=== PATIENT | female | born 1960 | race African-American/Black ===

== ENCOUNTER 2021-03-05 13:54 | Inpatient (IN) | payer BC ==
[~2021-03-05] VITALS: Ht 162.6 cm; Wt 107.4 kg
[~2021-03-05 13:54] MED LIST: AMBIEN CR 12.12.5 MG PO; ASPIRIN E.C. 8181 MG PO; LASIX 40MG TABL40 MG PO; MINOCIN 50M50 MG/CAP PO; NEXIUM 40MG40 MG PO; NORCO 325 MG-7.1 TAB PO; PROVIGIL200 MG PO; SYNTHROID0.1 MG/TAB PO
[2021-04-29] VITALS (11 sets, daily range): BP systolic 123–147; BP diastolic 62–85; PULSE 85–114; TEMP 98.6–99.7
[2021-04-29] MEDS ORDERED: CYMBALTA 60MG60 MG PO (06:39)
[2021-04-29] MEDS ORDERED: FOLIC ACID 11 MG/TA1 PO (06:41)
[2021-04-29] MEDS ORDERED: ONE-A-DAY ESSE1 EACH PO (06:41)
[2021-04-29] MEDS ORDERED: VITAMIN C500 MG PO (06:41)
[2021-04-29] MEDS ORDERED: SLOW FE142 MG PO (06:43)
[2021-04-29] MEDS ORDERED: VITAMIN B11000 MCG/M IM (06:44)
[2021-04-29] MEDS ORDERED: BENADRYL25 M2 PO (06:44)
--- NOTE | 2021-04-29 07:46 | NUR ---
UNABLE TO APPLY RAVI HOSE DUE TO PATIENTS SIZE. DID NOT HAVE THE RAVI HOSE SIZE TO ACCOMADATE PATIENT
--- NOTE | 2021-04-29 11:20 | NUR ---
Pt arrived to floor at this time via bed with PACU staff. Pt resting in bed, sleepy but arouses easily, family at bedside. Pt denies pian at this time, VSS. R knee is dressed with bulky dressing, CMS intact. Call light in reach, will conitnue to monitor.
[2021-04-29] MEDS ORDERED: PROAIR HFA0.09 MG/AC IH (12:28)
[2021-04-29] MEDS ORDERED: 00186-0372-20 IH (12:29)
--- NOTE | 2021-04-29 17:05 | NUR ---
Pt has done well over afternoon, able to verbalize needs well and PRN pain meds given per request. PT resting in bed, able to get up with wheeled walker to bathroom, gait steady, ice applied to knee. Called Dileep for orders on breathing treatments and called RT regarding pt request for breathing treatment and IS teaching. Resting in bed, ordering supper, will continue to monitor and [facility] will resume care.
--- NOTE | 2021-04-29 17:17 | NUR ---
Nurse walking by room found pt up ad lazara in room. Pt re-educated on need to get up with assistance, pt is alert and oriented and a nurse herself, aware of safety precautions. Will continue to monitor.
--- NOTE | 2021-04-29 22:56 | NUR ---
Patient assessed around 1949. Alert and oriented x 4, and able to make needs known. Patient having lots of pain tonight. Rated pain at a 7, and was given PRN [place] around 1949. Rated as a 7 again, and given PRN Roxicodone around 2214. Rated pain as an 8 at 2299, and given PRN Morphine per orders at that time. Also given PRN Ambien as requested around 2099, and PRN Benadryl around 2214 for itching. Peripheral INT to right hand. Denies SOB and dyspnea. LS CTA. Respirations even and unlabored. HRR. Capillary refill less than 3 seconds. Non-tenting skin turgor. BSAx4. Abdomen soft and non-tender. Declined senokot tonight. No edema. SCDs on. Dressing/GUILLERMINA wrap to right knee CDI. Patient voices no questions, needs, or concerns at this time. Resting in bed with call light within reach.
--- NOTE | 2021-04-29 23:49 | NUR ---
Patient continues to complain of level 8 pain to right knee. Given PRN [place] as requested for pain at this time.
[2021-04-30] VITALS (7 sets, daily range): BP systolic 128–194; BP diastolic 69–94; PULSE 89–109; TEMP 98.6–100
--- NOTE | 2021-04-30 02:05 | NUR ---
Patient given PRN Benadryl for itching and PRN Roxicodone for pain as requested.
--- NOTE | 2021-04-30 04:12 | NUR ---
Patient given PRN [place] for pain as requested.
--- NOTE | 2021-04-30 06:12 | NUR ---
Patient given PRN Roxicodone around 0545. Pain does not seem to be well controlled throughout the night, and patient was not able to get much rest during the night. Encouraged to continue to call for assistance when needed. Ice continues to knee.
[2021-04-30 06:41] LABS: HEMATOCRIT 26.1 % (37.0-47.0); HEMOGLOBIN 7.7 g/dl (12.5-16.0)
--- NOTE | 2021-04-30 09:29 | NUR ---
PT UP TO RECLINER FOR BREAKFAST. PT CONTINUES TO WANT PAIN MEDICATION Q 2 HRS. PAIN WELL CONTROLLED AT THIS TIME. DRESSING CHANGE COMPLETE AQUACEL PLACED OVER INCISION. PT TOLERATED ALL PROCEEDURES WELL.
--- NOTE | 2021-04-30 10:40 | NUR ---
First visit from the spa manager/esthetician. No needs right now.
--- NOTE | 2021-04-30 21:39 | NUR ---
Patient assessed around 1934. Alert and oriented x 4, and able to make needs known. Reported level 8 pain to right knee. Given PRN Roxicodone as requested for pain at that time. Patient again complained of level 8 pain around 2119, and was given PRN [place] as requested. peripheral INT to right hand. Denies SOB and dyspnea. LS CTA. Respirations even and unlabored. HRR. Capillary refill less than 3 seconds. Non-tenting skin turgor. BSAx4. Abdomen soft and non-tender. Edema to right leg. Aquacell to right knee CDI. Voices no questions, needs, or concerns at this time. Resting in bed with call light within reach.
[2021-05-01] VITALS (7 sets, daily range): BP systolic 118–175; BP diastolic 59–82; PULSE 93–111; TEMP 97.9–100.9
--- NOTE | 2021-05-01 00:02 | NUR ---
Patient given PRN Roxicodone for pain as requested at this time.
--- NOTE | 2021-05-01 01:42 | NUR ---
Patient complaining of level 7 pain to right knee. Given PRN [place] as requested for pain at this time.
--- NOTE | 2021-05-01 04:25 | NUR ---
Patient complaining of pain to right knee. Given PRN Roxicodone as requested for pain.
--- NOTE | 2021-05-01 05:38 | NUR ---
Patient has been receiving PRN pain medications about every 3 hours throughout the night, alternating PRN Roxicodone with PRN [place]. See MAR for details. Patient does state that she feels her pain is better controlled this morning, and that she is feeling well. Voices no questions, needs, or concerns at this time. Resting in bed with call light within reach. Did state that she feels like she was able to get more sleep tonight as well.
[2021-05-01 06:03] LABS: HEMATOCRIT 23.6 % (37.0-47.0); HEMOGLOBIN 7.1 g/dl (12.5-16.0)
--- NOTE | 2021-05-01 08:15 | NUR ---
Pt rang call light asking for more pain medication. Pt just recently has had some pain medication. Pt is drowsy upon entering the room. She has been taking as much pain medication as is prescribed through the night. She states that she is used to taking that much as I discussed it might be the cause of her drowsiness and dizziness. Pt reports that her pain is 4/10 right now and that it is tolerable for her to still be able to get up and move around. She stated that she knows she can't tolerated pain very well. She has had breakfast, reports getting enough to eat. No other needs, PT going in to work with pt.
--- NOTE | 2021-05-01 08:21 | NUR ---
(late entry 04/30) Radiation Protection Specialist met with the patient to complete intake. The patient alone in [place]. The patient has a walker and is independent with ADLs. The patient's PCP is Francis Alfonso PA-C and patient receives medications from [facility] in . The patient does not have advanced directives. The patient has an adult daughter, Onesimo Renae. The patient is currently set to begin OP PT at [place] and plan is to go home. However, the patient inquired about post acute rehab. After discussing options, the patient was agreeable to sending a referral to [facility] IPR. Referral sent. *Discharge disposition: Home with OP PT or IPR*
--- NOTE | 2021-05-01 10:00 | NUR ---
Returned to give patient pain medicaiton. Pt was in her room sitting sideways on her bed crying in pain. Offered to assist pt it sitting more straight or to get in the the chair. Pt refused stated that she was in too much pain to even move. Pain medication given. Pt reported that she needs to be taking something more often. Informed her that she had something around 0630 and that it had just been 3 hours since getting pain medication. I did call ERICK Benavides to ask about giving something IV. Kennedy reported that he did not want her having anything IV at this time. Will continue to monitor
--- NOTE | 2021-05-01 10:15 | NUR ---
Returned to tell pt that I would not be able to get her anything IV. Pt was sitting more upright on her bed talking cheerfully on the phone. Pt did get off the phone when I entered. I informed her that I would not be able to get her anything IV, but that if her pain does not become tolerable soon, there was another option for oral pain medication. Pt stated that does not need anything additional that she feels fine. Pt reported that she is going go start getting dressed.
--- NOTE | 2021-05-01 11:52 | NUR ---
Pt swaying back and forth in bed, moaning and rubbing her knee. Reports pain is burning and starting to get really bad. Pain medication given
--- NOTE | 2021-05-01 12:25 | NUR ---
Pt sitting up on the side of the bed. She does appear sleepy, eyes partially open. She did state that her pain is better, rating it at a 2 at this time.
--- NOTE | 2021-05-01 14:45 | NUR ---
Pt asking for more pain medication. She was laying sideways again in bed with head resting on the side rail. Asked about helping her get repositioned and she reported that that is what is comfortable for her. I did have to wake her upon entering room. Once discussing pain, she started moaning. Informed her that laying on her right side and applying the extra pressure to her knee is probably not helping the pain. Encouraged her to lay on her back and keep her knee straight which she did at this time. She does have an ice pack to her right knee. She then stated that she is itching and wants benadryl.
--- NOTE | 2021-05-01 15:44 | NUR ---
Pt up walking in the [place]. Appears to be doing well although she is moving slowly. She does not have her walker with her. Informed her she should be using it when she is up ambulating. She walked to the Joint desk and back to her room. Denies any other needs.
--- NOTE | 2021-05-01 16:45 | NUR ---
Pt does have a visitor in the room with her at this time. She is also asking about getting more pain medication. She asked when she can have it again. I asked how she would rate her pain and she stated that it wasn't too bad. I encouraged her to try and wait 3 hours between getting pain medication if she could. She stated that would not be a problem, informed her it would be about 6pm. Thigh high julio huggins applied. No other needs, pt continues to be up in her room independently.
--- NOTE | 2021-05-01 21:08 | NUR ---
PT RESTING IN BED. C/O RT KNEE PAIN. LEVEL 7/10. SEE MAR FOR PAIN MED GIVEN. REMINDED PT NEED FOR GOOD ALLIGNMENT WHEN RESTING IN BED. ENC I.S FREQUENTLY.
--- NOTE | 2021-05-01 22:45 | NUR ---
PT ASKING FOR PAIN MEDICATION AGIAN. LAST DOSE ROXICODONE AT 2107. TOO SOON.
[2021-05-02] VITALS (12 sets, daily range): BP systolic 111–157; BP diastolic 54–79; PULSE 90–101; TEMP 97.5–99.6
[2021-05-02 06:49] LABS: HEMATOCRIT 22.7 % (37.0-47.0); HEMOGLOBIN 6.9 g/dl (12.5-16.0)
--- NOTE | 2021-05-02 08:12 | NUR ---
Pt doing well this morning. She has had no extreme complaints of pain. Dr Falk has been in to see patient. No new orders, but pt planning on going home after morning therapy
--- NOTE | 2021-05-02 10:19 | NUR ---
Fresh Foods Technician met with the patient to revisit the discharge plan. The patient plans to do OP PT at [facility] and her appointment is set for next Thursday, 05/08 at 1300. She is feeling better and does not qualify for IPR. *Discharge disposition: Home with OP PT*
--- NOTE | 2021-05-02 11:00 | NUR ---
Pt continues to do well and plans to go home today. She has had no increasing complaints of pain and no other complaints at this time. Informed her that I was waiting on the order from the physician before I could start on paperwork. Pt stated that she understood
--- NOTE | 2021-05-02 11:45 | NUR ---
Pt laying sideways in bed at this time. She stated that she trying to get in bed a different way and it didn't work. Instructed pt to sit up and instructed her on what to do to lay straight. Pt is consistently laying crooked/sideways in bed. Educated again that she needs to be cautious doing this as it is forcing her knee to be strained. Asked WORKERS' COMPENSATION MAGISTRATE to get ice pack for her right knee. Pt has ordered lunch and pain medication given
[2021-05-02] MEDS ORDERED: NORCO 325 MG-7.1 TAB PO (12:20)
[2021-05-02] MEDS ORDERED: ASPI325T6 PO (12:20)
[2021-05-02] MEDS ORDERED: ROXICODONE 55 MG/TAB PO (12:22)
[2021-05-02] MEDS ORDERED: SENOKOT S 50 MG1 TAB PO (12:22)
--- NOTE | 2021-05-02 14:00 | NUR ---
Informed pt that I had received orders for her to go home and that we were just plugging in her appointment. She stated no problem and that she was not in any hurry. She stated she would call her ride which was coming from [place]. Pt then asked what her hemoglobin was. Told her the results. Shortly after, pt rang call light. She was initially asking to speak to the credit and loan collections supervisor. I asked her if there was something I could do. Pt then started almost crying stating that she was concerned going home with her hemoglobin below 7. She stated that she was having heart palpitations and she feels like her heart is racing. Pulse rate is consistent from when she was admitted. Informed her that there haven't been drastic vital sign changes and she stated that she knew that because "this is how I always am." Informed her I would call ortho and let them know her concerns.
--- NOTE | 2021-05-02 15:28 | NUR ---
Have received new orders for pt to get some blood. Pt was initally upset that it is just now being ordered. I informed her that we just became aware of the "symptoms" that she was having. She then stated she understood. She should have something sooner. Pt again laying sideways in the bed and on the right side. Again educated her that this is not good for her knee pain. Ice pack on the right knee. Informed her I would be in with the blood once it is ready
--- NOTE | 2021-05-02 20:00 | NUR ---
PT UP ABOUT ROOM. INCONT EPISDOES- PROVIDED BRIEFS. PAIN CONTROLLED AT THIS TIME. WAITING FOR BLOOD FOR TRANSFUSION. PT HAS SEDATED AFFECT. ENC SAFETY ABOUT ROOM.
--- NOTE | 2021-05-02 22:30 | NUR ---
#1 UNIT LPRBC'S STARTED. PT VERBALIZED UNDERSTANDING OF S/S BLOOD REACTION.
--- NOTE | 2021-05-02 22:59 | NUR ---
IV TO RT HAND INFILTRATED. CHARGE NURSE ATTEMPTING TO RESTART ANOTHER IV. GAVE BENADRYL EARLIER PREVENTATIVELY FOR BLOOD TRANSFUSION PER PT REQUEST.
[2021-05-03 00:30] VITALS: BP 128/61; PULSE 103; TEMP 98.8
[2021-05-03 01:30] VITALS: BP 127/64; PULSE 102; TEMP 98.7
[2021-05-03 04:06] VITALS: BP 126/64; PULSE 95; TEMP 98.3
[2021-05-03 06:14] LABS: HEMATOCRIT 26.8 % (37.0-47.0)
[2021-05-03 07:23] VITALS: BP 98/79; PULSE 91; TEMP 98.9
--- NOTE | 2021-05-03 08:00 | NUR ---
Patient resting in bed at this time. Patient requests PRN pain medication for 6/10 pain in her right knee, administered per order. Patient reports that she is tired this morning, but is in good spirits, is looking forward to going home today after PT. Denies further needs, call light within reach.
--- NOTE | 2021-05-03 11:55 | NUR ---
Discharge teaching completed. Discussed follow up appointments, discharge medications, and discharge instuctions. Patient verbalized understanding. IV removed, catheter intact, hemostasis achieved. Patient confirmed all belongings were gathered, patient escorted to ED entrance via wheelchair where she entered a private vehicle.
== END 2021-05-03 11:55 | disposition home or self-care (01) | DRG 470 ==
LOC: INPTSU 04-29 05:17 → SURG 04-29 07:30
PROVIDERS: Physician Assistant; ADMIT Orthopaedic Surgery
PROC: 3E0U3BZ Introduction of Anesthetic Agent into Joints, Percutaneous Approach (ICD-10-PCS; 2021-04-29)
PROC: 0SRC0J9 Replacement of Right Knee Joint with Synthetic Substitute, Cemented, Open Approach (ICD-10-PCS; principal; 2021-04-29 07:30)
PROC: 3E0U33Z Introduction of Anti-inflammatory into Joints, Percutaneous Approach (ICD-10-PCS; 2021-04-29 07:30)
DX: M17.0 Bilateral primary osteoarthritis of knee (principal); D62 Acute posthemorrhagic anemia; I10 Essential (primary) hypertension; K21.9 Gastro-esophageal reflux disease without esophagitis; M79.7 Fibromyalgia; I25.10 Atherosclerotic heart disease of native coronary artery without angina pectoris; E11.42 Type 2 diabetes mellitus with diabetic polyneuropathy; J45.909 Unspecified asthma, uncomplicated; F32.9 Major depressive disorder, single episode, unspecified; F41.9 Anxiety disorder, unspecified; F43.10 Post-traumatic stress disorder, unspecified; G47.00 Insomnia, unspecified; Z88.0 Allergy status to penicillin; Z88.2 Allergy status to sulfonamides
CPT/HCPCS: A9284; C1713; C1776; J0360; J0690; J1040; J2250; J2270; J2704; J7120; P9016

== ENCOUNTER → 2021-05-10 | Outpatient (CLI) | payer BC ==
[~2021-05-10] MED LIST changes: +00186-0372-20 IH; +ASPI325T6 PO; +BENADRYL25 M2 PO; +CYMBALTA 60MG60 MG PO; +FOLIC ACID 11 MG/TA1 PO; +ONE-A-DAY ESSE1 EACH PO; +PROAIR HFA0.09 MG/AC IH; +ROXICODONE 55 MG/TAB PO; +SENOKOT S 50 MG1 TAB PO; +SLOW FE142 MG PO; +VITAMIN B11000 MCG/M IM; +VITAMIN C500 MG PO
== END ==
LOC: COL.VAS 10:45
DX: M79.604 Pain in right leg (principal); M79.89 Other specified soft tissue disorders; Z96.651 Presence of right artificial knee joint

== ENCOUNTER 2021-06-27 13:43 | Inpatient (IN) | payer BC ==
[~2021-06-27] VITALS: Ht 160 cm; Wt 99.5 kg
[2021-11-25] VITALS (8 sets, daily range): BP systolic 109–131; BP diastolic 62–99; PULSE 73–91; TEMP 97.6–99.8
--- NOTE | 2021-11-25 07:35 | NUR ---
61 Year old patient admitted to [facility] bay #7. Patient is alert and oriented X3. Using a mildy unsteady gait and no use of assistive devices. Height and weight obtained. Procedure verified and consent signed. Patient verbalized understanding of procedure. Medications and HX was reviewed. Vitals obtained. Patient changed into a clean gown and has the non-sliop socks on. Warm blankets provided. L knee area scrubbed with chlorhexidine and teds applied to the non-operative side. IV started in R hand on first attempt. It is positional, however infuses without difficulty if you pull back a little on the hub. Anasthesia notified and verbalized understanding. IVF are infusing slowly. No swelling, redness or edema noted. Call almaraz is at bedside. Side rails x2. Father was escorted from the waiting room and is present in the patients private bay. Privacy code was provided, along with inpatient unit number. PO medications administered.
--- NOTE | 2021-11-25 12:45 | NUR ---
PATIENT ADMITED INTO ROOM 332 POST OP LTK. ORIENTED BUT DROWSY. VSS. DENIES PAIN OR NAUSEA. LEFT KNEE DRESSING IS CD&I WITH BULKY ACEWRAP DRESSING AND ICE PACK INPLACE. TEDS TO RLE. SCD'S TO BLE. POSITIVE PEDAL PULSES TO BLE. PATIENT WAS STRAIGHT CATHED IN PACU FOR 550CC, DENIES NEED TO VOID. IV FLUIDS INFUSING INTO RIGHT HAND VIA PUMP. HEAD TO TOE ASSESSMENT COMPLETE. ORIENTED TO ROOM. CALL LIGHT IN REACH. PATIENT'S DAD AT BEDSIDE.
--- NOTE | 2021-11-25 21:16 | NUR ---
Patient assessed around 1944. Alert and oriented x 4, and able to make needs known. Reported level 8 pain to left knee. Given PRN Morphine per orders at that time. Called again around 2044, reporting level 8 pain. Given second dose of Morphine per orders at that time. Dressing to left knee CDI. Ice to area. SCDs on. Denies SOB and dyspnea. LS CTA. HRR. Has been getting up to bedside commode. Voices no further questions, needs, or concerns at this time. In bed with call light within reach.
--- NOTE | 2021-11-25 21:32 | NUR ---
Patient given PRN Roxicodone and Ambien as requested at this time. Pain is currently rated as a 6 to left knee.
--- NOTE | 2021-11-25 23:55 | NUR ---
Patient given PRN [place] around 2315 by charge nurse. This nurse checked on patient around 2340 to follow up. Reported she still had pain to left knee. Offered a half tab of [place] per orders, and agreeable. Given per orders. Explained that PRN Roxicodone would be margie around 0130 along with ABX, but encouraged to call if she was needing PRN Morphine before that, and voiced understanding. Voices no further questions, needs, or concerns at this time. In bed with call light within reach.
[2021-11-26] VITALS (7 sets, daily range): BP systolic 107–149; BP diastolic 48–95; PULSE 93–107; TEMP 97.5–99.7
--- NOTE | 2021-11-26 01:36 | NUR ---
Patient given PRN Ultram at 0050. Not effective. Offered PRN Roxicodone at 0130, but stated she wanting something stronger and faster first. Given PRN Morphine at that time. Updated patient's white board with how often she can have each pain medication and the last time that she had each pain medication.
--- NOTE | 2021-11-26 03:01 | NUR ---
Patient given PRN Roxicodone around 0230. Requested Morphine for pain around 0250 after using commode. Given as requested.
--- NOTE | 2021-11-26 04:43 | NUR ---
Patient given PRN Morphine for pain at this time. Reports pain is doing better, rated at a 6.
--- NOTE | 2021-11-26 06:20 | NUR ---
Patient given PRN [place] around 0535, and Roxicodone around 0615. Ice to left knee. Voices no further questions, needs, or concerns at this time. In bed with call light within reach.
[2021-11-26 07:04] LABS: HEMOGLOBIN 10.8 g/dl (12.5-16.0)
[2021-11-26 07:05] LABS: HEMATOCRIT 33.4 % (37.0-47.0)
--- NOTE | 2021-11-26 07:30 | NUR ---
PATIENT IS ORIENTED X2 BUT SEEMS A LITTLE TURNED AROUND THIS AM. PATIENT REPORTS SHE DIDN'T GET ANY SLEEP LAST NIGHT. PATIENT C/O PAIN IN LLE. PATIENT IS GETTING SEVERAL DIFFERENT PAIN MEDS AND HAS ALREADY RECEIVED MOST OF THEM ORDERED. PATIENT WAS GIVEN PRN ULTRAM, TWO TABS WITH AM MEDS. PAIN MEDS WRITTEN ON WHITE BOARD WITH NEXT AVAILABLE DOSE. NURSING EDUCATED PATIENT ABOUT ICE & ELEVATION, SHE DECLINED. NURSING WAS ABLE TO REMOVE POST OP ACEWRAP DRESSING AND APPLIED AQUACEL. ICE PACK NEXT TO PATIENT, SHE DOESN'T NOT WANT IT RIGHT NOW. TEDS TO RLE. SCD'S CURRENTLY OFF. POSITIVE PEDAL PULSES TO BLE. PATIENT IS EAT/DRINK/VOIDING SUFFICENT AMOUNTS. LAST DOSE OF IV ABX INFUSING. HEAD TO TOE ASSESSMENT COMPLETE. CALL LIGHT IN REACH.
--- NOTE | 2021-11-26 08:53 | NUR ---
PATIENT CALLED OUT MINUTES AFTER NURSING LEFT ROOM ASKING WHEN SHE WILL BE GETTING THE MORPHINE. PATIENT WAS REMINDED NURSING AND 2 PCT'S WERE JUST IN THE ROOM MOMENTS AGO. AFTER TALKING WITH ORTHO REGUARDING NARCOTICS, NURSING EDUCATED PATIENT ABOUT BREAK THROUGH DOSING OF MORPHINE, AND RN SAID "I WILL GIVE YOU YOUR FIRST DOSE NOW". PRN IV MORPHINE 2MG GIVEN, IV LINE FLUSHED, AND PATIENT DISCONNECTED FROM COMPLETED LAST DOSE OF IV ABX. PATIENT SITTING AT BEDSIDE, ROCKING WITH HER EYES CLOSED DURING THIS TIME. NURSING OFFERED TO ICE & ELEVATE KNEE BUT PATIENT REFUSED. ALTHOUGH PATIENT HAS A VERY LOW THRESHOLD FOR PAIN, REPORTED BY HER, NURSING IS CONCERNED SHE DOESN'T HARDLY REMEMEBER ANY OF THAT INTERACTION, ADMINISTRATION OF NARCOTICS, AND SEEMS TO HAVE HAD A LOT OF NARCOTICS ON BOARD. WILL MONITOR
--- NOTE | 2021-11-26 10:27 | NUR ---
shine worker met with patient to discuss discharge plan. Patient's lila Catalan ([phone]) present at bedside. Patient reports that she is independent with her activities of daily living and has been utilizing a walker to assist with mobility. PCP is ERICK Alfonso and she utilizes [facility] in for perscription needs with no cost difficulty. Patient reports that she does not have a DPOA-HC established but verbalizes that it would be her lila Al. Educated the patient that if she was wanting to make him her agent she would need to fill out a DPOA-HC form listing him. Patient is interested in receiving form to make his her agent. Form provided and education given on how to complete it. Patient is planning on returning home once ready for discharge. Discharge plan: Home with OP PT
--- NOTE | 2021-11-26 15:05 | NUR ---
PATIENT CALLING OUT ASKING FOR MORE PAIN MEDS. PATIENT RECEIVED ROXYCODONE, TWO TABS JUST 30 MINUTES AGO. PATIENT HAS BEEN CALLING OUT ASKING FOR PAIN MEDS AROUND THE CLOCK TODAY DESPITE NURSING WRITTING THE NEXT AVAILABLE DOSE TIME ON THE BOARD. PATIENT IS CURRENTLY RECEIVING ROXYCODONE, [place], ULTAM AND ONE DOSE OF IV MORPHINE FOR BREAK THROUGH PAIN. ORTHO CONTACT ABOUT PAIN MANAGEMENT NEEDS. AWAITING RETURN CALL
--- NOTE | 2021-11-26 21:33 | NUR ---
Patient assessed. Alert and oriented x 4, and able to make needs known. Patient up moving around in room. Patient reports pain is much better. Given PRN Ultram for pain to left knee as requested. Dressing to left knee CDI. 1+ edema LLE. LS CTA. HRR. Voices no questions, needs, or concerns at this time. In bed with call light within reach.
[2021-11-27 03:37] VITALS: PULSE 104; TEMP 99.1
--- NOTE | 2021-11-27 05:34 | NUR ---
Patient's pain better controlled this shift. Received Ultram 100 mg po around 2114. Received PRN Roxicodone 5 mg around 224. After getting up and going to the bathroom, rated pain at an 8, and recieved another 5 mg Roxicodone around 314. Rated pain at a 4 this morning, and given PRN [place] around 0530. Voices no further questions, needs, or concerns at this time. In bed with call light within reach.
[2021-11-27 06:53] LABS: HEMOGLOBIN 9.7 g/dl (12.5-16.0)
--- NOTE | 2021-11-27 06:55 | NUR ---
awake resting in bed, bedside shift report received from URIEL Stark
[2021-11-27 08:00] VITALS: BP 115/61; PULSE 110; TEMP 100.5
--- NOTE | 2021-11-27 08:00 | NUR ---
awake resting in bed, has had breakfast and tolerated well, full assessment completed, see interventions for further info, Temp 100.5 and she is encouraged to C&DB and use incentive spirometer, verbalizes understanding
--- NOTE | 2021-11-27 08:55 | NUR ---
resting in bed, states pain is increasing in left knee, medicated with roxicodone 5mg
--- NOTE | 2021-11-27 09:40 | NUR ---
Initial visit; Patient thanked Setter Helper for looking in on her and offering prayer and a prayer card. Sol stated she feels much better today and that yesterday was difficult being the first day out of surgery.
--- NOTE | 2021-11-27 10:17 | NUR ---
continues to c/o pain to left knee, medicated with second roxicodone 5mg, at bedside and assists her
--- NOTE | 2021-11-27 11:00 | NUR ---
occupational therapy in assisting her with a shower
[2021-11-27 11:28] VITALS: BP 111/82; PULSE 121; TEMP 99.9
--- NOTE | 2021-11-27 13:15 | NUR ---
physical therapy was in and worked with patient and she still plans to discharge, requesting something for breakthrough pain
--- NOTE | 2021-11-27 13:44 | NUR ---
c/o pain after working with therapy, medicated with [id number] po
[2021-11-27] MEDS ORDERED: ELIQUIS 2.5 PO (14:16)
[2021-11-27] MEDS ORDERED: ROXICODONE 55 MG/TAB PO (14:17)
[2021-11-27] MEDS ORDERED: NORCO 325 MG-7.1 TAB PO (14:18)
[2021-11-27] MEDS ORDERED: SENOKOT S 50 MG1 TAB PO (14:19)
--- NOTE | 2021-11-27 15:10 | NUR ---
discharge instructions given to patient and her , verbalizes understanding
--- NOTE | 2021-11-27 15:15 | NUR ---
discharged per WC
== END 2021-11-27 15:15 | disposition home or self-care (01) | DRG 470 ==
LOC: SDCO 08-07 07:30 → EDSTATUS 08-07 07:30 → SURG 08-07 07:30 → INPTSU 11-25 07:11 → SURG 11-25 07:11
PROVIDERS: ADMIT Orthopaedic Surgery
PROC: 0SRD0J9 Replacement of Left Knee Joint with Synthetic Substitute, Cemented, Open Approach (ICD-10-PCS; principal; 2021-11-25 07:30)
DX: M17.12 Unilateral primary osteoarthritis, left knee (principal); Z86.718 Personal history of other venous thrombosis and embolism; Z79.01 Long term (current) use of anticoagulants; Z23 Encounter for immunization
CPT/HCPCS: A9284; C1713; C1776; J0690; J2250; J2270; J2704; J3010; J7120